=== PATIENT | female | born 2000 ===

== ENCOUNTER 2025-02-11 13:13 | Outpatient (RCR) | payer BC, SELFPAY | END 2025-02-11 23:59 | disposition home or self-care (01) | LOC: RPT 13:13 | PROVIDERS: FAMILY PHYSICIAN Internal Medicine | DX: D18.1 Lymphangioma, any site (principal); K90.49 Malabsorption due to intolerance, not elsewhere classified; E88.09 Other disorders of plasma-protein metabolism, not elsewhere classified; Z73.6 Limitation of activities due to disability; M62.81 Muscle weakness (generalized) | CPT/HCPCS: 97140; 97163; 97530 ==

== ENCOUNTER 2025-03-20 13:19 | Outpatient (RCR) | payer BC, SELFPAY | END 2025-03-20 23:59 | disposition home or self-care (01) | LOC: RPT 13:19 | PROVIDERS: ATTENDING PHYSICIAN Nurse Practitioner Pediatrics; FAMILY PHYSICIAN Internal Medicine | DX: D18.1 Lymphangioma, any site (principal); K90.49 Malabsorption due to intolerance, not elsewhere classified; E88.09 Other disorders of plasma-protein metabolism, not elsewhere classified; Z73.6 Limitation of activities due to disability; M62.81 Muscle weakness (generalized) | CPT/HCPCS: 97110; 97140; 97530 ==

== ENCOUNTER 2025-04-17 15:02 | Outpatient (RCR) | payer BC, SELFPAY | END 2025-04-17 23:59 | disposition home or self-care (01) | LOC: RPT 15:02 | PROVIDERS: ATTENDING PHYSICIAN Nurse Practitioner Pediatrics; FAMILY PHYSICIAN Internal Medicine | DX: D18.1 Lymphangioma, any site (principal); K90.49 Malabsorption due to intolerance, not elsewhere classified; E88.09 Other disorders of plasma-protein metabolism, not elsewhere classified; Z73.6 Limitation of activities due to disability; M62.81 Muscle weakness (generalized) | CPT/HCPCS: 97110; 97140; 97530 ==

== ENCOUNTER 2025-05-08 09:54 | Outpatient (RCR) | payer BC, SELFPAY | END 2025-05-08 23:59 | disposition home or self-care (01) | LOC: RPT 09:54 | PROVIDERS: ATTENDING PHYSICIAN Nurse Practitioner Pediatrics; FAMILY PHYSICIAN Internal Medicine | DX: D18.1 Lymphangioma, any site (principal); K90.49 Malabsorption due to intolerance, not elsewhere classified; E88.09 Other disorders of plasma-protein metabolism, not elsewhere classified; Z73.6 Limitation of activities due to disability; M62.81 Muscle weakness (generalized) | CPT/HCPCS: 97110; 97112 ==

== ENCOUNTER 2025-06-19 07:03 | Outpatient (RCR) | payer BC, SELFPAY | END 2025-06-19 23:59 | disposition home or self-care (01) | LOC: RPT 07:03 | PROVIDERS: ATTENDING PHYSICIAN Nurse Practitioner Pediatrics; FAMILY PHYSICIAN Internal Medicine | DX: D18.1 Lymphangioma, any site (principal); K90.49 Malabsorption due to intolerance, not elsewhere classified; E88.09 Other disorders of plasma-protein metabolism, not elsewhere classified; Z73.6 Limitation of activities due to disability; M62.81 Muscle weakness (generalized) | CPT/HCPCS: 97110; 97530 ==